=== PATIENT | male | born 1970 | race Caucasian/White ===

== ENCOUNTER → 2019-06-21 | Outpatient (CLI) | payer BC ==
--- NOTE | 2019-06-21 18:45 | RAD ---
Exam: Lumbar spine 2 views INDICATION: Lower back pain, radiating down right hip TECHNIQUE: Frontal and lateral views of the lumbar spine Comparisons: None FINDINGS: Vertebral body heights are well-maintained. Straightening of the lumbar spine demonstrating positional. Severe facet arthropathy is noted in the lumbar spine Visualized soft tissues are unremarkable. IMPRESSION: Spondylotic change in the lumbar spine as described above. Electronically signed by: Bridgette Alvarado MD (06/21/2019 6:43 PM) [id number]
== END | disposition home or self-care (01) ==
LOC: RAD 17:56
PROVIDERS: ATTEND Family Medicine
DX: M46.86 Other specified inflammatory spondylopathies, lumbar region (principal)
CPT/HCPCS: 72100